=== PATIENT | male | born 2000 | race Two or more races ===

== ENCOUNTER 2025-08-17 11:29 | Emergency (ER) | payer MEDICAID, OTHER ==
[~2025-08-17] VITALS: Ht 170.2 cm; Wt 99.2 kg
--- NOTE | 2025-08-17 12:51 | ED.PDOC ---
History of Present Illness HPI Comments 25 y/o M presents with c/c of headache s/p syncope with fall and head injury. Patient reports on passing out, while working out with his friend, and falling and injuring the back of his head. No reported prior ailments or previous head injuries. No reported additional injuries, weakness, numbness, tingling, or further acute symptoms at this time. Only medical history of asthma and marijuana use. Chief Complaint: Syncope Time Seen by MD: 12:25 Reviewed Notes: Nurses Notes, Medications, Allergies Allergies: Coded Allergies: Penicillins (Verified Allergy, Unknown, 08/17/25) Information Source: Patient Mode of Arrival: Ambulatory Severity: Moderate Timing: Hours Duration: Since onset Prehospital treatment: None Past Medical History PAST MEDICAL HISTORY: Asthma Surgical History: Denies all surgeries Family History Family History: Reviewed,noncontributory to illness, No family hx of Cancer, No family hx of DM, No family hx of Heart awais, No family hx of HTN, No family hx ofKidney awais, No family hx of Liver awais, No family hx of Lung awais, No family hx of Stroke Social History Smoker: Non-Smoker Alcohol: Denies ETOH Use Drugs: Marijuana Lives In: Home All Other Systems: Reviewed and Negative (Comprehensive review of systems are negative unless stated in HPI) Physical Exam General Appearance: Moderate Distress HEENT: Normal ENT Inspection, Pharynx Normal, TMs Normal Neck: Full Range of Motion, Non-Tender, Normal, Normal Inspection Respiratory: Chest Non-Tender, Lungs Clear, No Accessory Muscle Use, No Respiratory Distress, Normal Breath Sounds Cardiovascular: No Edema, No JVD, No Murmur, No Gallop, Normal Peripheral Pulses, Regular Rate/Rhythm Breast Exam: Deferred Gastrointestinal: No Organomegaly, Non Tender, No Pulsatile Mass, Normal Bowel Sounds, Soft Genitalia: Deferred Pelvic: Deferred Rectal: Deferred Extremities: No calf tenderness, Normal capillary refill, Normal inspection, Normal range of motion, Non-tender, No pedal edema Musculoskeletal : Apperance: Normal Neurologic: Alert, proposal analyst II-XII nml as Tested, No Motor Deficits, Normal Affect, Normal Mood, No Sensory Deficits Cerebellar Function: Normal Reflexes: Normal Skin: Dry, Normal Color, Warm Peripheral Pulses: 3+ Radial (R), 3+ Radial (L) Lymphatic: No Adenopathy Was a procedure done? Was a procedure done?: No Differential Dx Considerations may include: closed head injury, fractures, intracranial bleed, contusions, bruising, hypoxia, vasovagal response, dehydration, electrolyte imbalance, among others X-Ray, Labs, Meds, VS Vital Signs Date Time Temp Pulse Resp B/P (MAP) Pulse Ox O2 Delivery O2 Flow Rate FiO2 08/17/25 14:50 98.6 52 18 118/79 (92) 98 98.6 08/17/25 14:50 52 16 100 Room Air* 0 21 08/17/25 11:33 97.3 62 18 142/74 100 97.3 Patient alert. Stated that he was in the generally when he hit his head. Vitals stable. Answering questions. No sign of any head injury. CT of the head reviewed does show subdural hemorrhage subarachnoid. Ambulating. No chest pain. No shortness a breath. No leg swelling. Ambulating. No distress. No acute process. No neurological deficits. Spoke with [facility] physician for transfer. Explained to the patient. Time of 1ST Reevaluation: 12:55 Reevaluation 1ST: Improved Patient Education/Counseling: Diagnosis, Treatment, Need For Follow Up Family Education/Counseling: No Family Present SEPSIS Sepsis Screen Date sepsis recognized/suspect: Aug 17, 2025 Time Sepsis recognized/suspect: 1136 Recent Procedure: No Respiratory Rate >20: No Heart Rate >90: No Temp<36 C (96.8 F) or >38.3 C: No SBP <90 or MAP <65 mmHG: No New Acute Mental Status Change: No Is the patient on CPAP, BIPAP,: No Physician Orders Head Without Contrast (08/17/25 12:29) Imaging Transfer Request (08/17/25 13:18) Vital Signs Date Time Temp Pulse Resp B/P (MAP) Pulse Ox O2 Delivery O2 Flow Rate FiO2 08/17/25 14:50 98.6 52 18 118/79 (92) 98 98.6 08/17/25 14:50 52 16 100 Room Air* 0 21 08/17/25 11:33 97.3 62 18 142/74 100 97.3 Departure 1 Departure Time of Disposition: 12:54 Impression: Primary Impression: Subdural hematoma Additional Impressions: Subarachnoid hemorrhage Intraparenchymal hemorrhage of brain Disposition: 02 SHORT TERM HOSPITAL Admit to: Med Surg Condition: Guarded Critical Care Note Critical Care Time?: Yes (90 min-critical care time only) Stability Stability form required: No Heart Score Heart Score: Heart Score Response (Comments) Value History N/A 0 EKG N/A 0 Age N/A 0 Risk Factors N/A 0 Troponin N/A 0 Total 0 I personally scribed for JULIETH ARGUELLES MD ([email or web address]) on 08/17/25 at 12:51. Electronically submitted by Fredi Taylor ([email or web address]). JULIETH ARGUELLES MD Aug 17, 2025 12:51
--- NOTE | 2025-08-17 13:07 | DVH ---
CT HEAD WITHOUT CONTRAST Indication: fall EXAM DATE: 08/17/2025 12:36 PM COMPARISON: None TECHNIQUE: CT of the head without intravenous contrast. RADIATION DOSE: CTDIvol: 53.99 mGy, DLP: 864 mGy*cm FINDINGS: There is left frontal intraparenchymal hemorrhage measuring 1.8 x 1.6 cm. Left frontal subdural hemat tariq measuring 4 mm. Bifrontal subarachnoid hemorrhage.The ventricles are normal in size. Basilar cist erns are patent.. 2 mm axep-gh-nerzp shift. Tabares-white differentiation is maintained. Mastoids well pneumatized. Paranasal sinuses are well pneumatized.. Imaged portion of the orbits are unremarkable. IMPRESSION: Left frontal intraparenchymal hemorrhage measuring 1.8 cm. Left frontal subdural hematoma measuring 4 mm in thickness. Bifrontal subarachnoid hemorrhage, [id number]. Very mild 2 mm [id number] midline shift. Findings discussed with Dr Tucker, at 08/17/2025 01m:07 PM, and acknowledged receipt and understandi ng of the findings. ..
[2025-08-17 14:50] VITALS: BP 118/79; PULSE 52; RESP 16; RESP 18; TEMP 98.6; O2SAT 100; O2SAT 98
== END 2025-08-17 15:34 | disposition short-term general hospital (02) ==
LOC: ER 11:29
DX: S06.5X9A Traumatic subdural hemorrhage with loss of consciousness of unspecified duration, initial encounter (principal); S06.6X9A Traumatic subarachnoid hemorrhage with loss of consciousness of unspecified duration, initial encounter; J45.909 Unspecified asthma, uncomplicated; Z88.0 Allergy status to penicillin; W18.39XA Other fall on same level, initial encounter; Y93.89 Activity, other specified; Y92.89 Other specified places as the place of occurrence of the external cause; Y99.8 Other external cause status
CPT/HCPCS: 70450; 99291

== ENCOUNTER 2025-08-17 14:42 | Emergency (ER) | payer MEDICAID | END 2025-08-17 14:44 | disposition left against medical advice (07) | LOC: ER 14:42 → EDBD 14:42 → ER 14:44 | DX: R51.9 Headache, unspecified (principal); Z53.21 Procedure and treatment not carried out due to patient leaving prior to being seen by health care provider ==